=== PATIENT | male | born 1985 | race Caucasian/White ===

== ENCOUNTER → 2018-07-22 | Outpatient (CLI) | payer MEDICAID | LOC: LAB 15:06 | PROVIDERS: ATTEND Student in an Organized Health Care Education/Training Program | DX: Z34.91 Encounter for supervision of normal pregnancy, unspecified, first trimester (principal) | CPT/HCPCS: 36415; 84702 ==

== ENCOUNTER → 2018-07-24 | Outpatient (CLI) | payer MEDICAID | LOC: LAB 12:16 → EDSEX 12:16 | PROVIDERS: ATTEND Student in an Organized Health Care Education/Training Program | DX: O20.0 Threatened abortion (principal) | CPT/HCPCS: 36415; 84702 ==

== ENCOUNTER → 2018-07-29 | Outpatient (CLI) | payer MEDICAID | LOC: LAB 11:56 | PROVIDERS: ATTEND Student in an Organized Health Care Education/Training Program | DX: O20.0 Threatened abortion (principal) | CPT/HCPCS: 36415; 84702; 86900; 86901 ==

== ENCOUNTER → 2018-08-12 | Outpatient (CLI) | payer MEDICAID | LOC: LAB 11:26 | PROVIDERS: ATTEND Student in an Organized Health Care Education/Training Program | DX: O03.9 Complete or unspecified spontaneous abortion without complication (principal) | CPT/HCPCS: 36415; 84702 ==

== ENCOUNTER → 2018-09-29 | Outpatient (CLI) | payer MEDICAID ==
[~2018-09-29] MED LIST: DOXY1TAB3 PO; ONDA4TAB97 PO; PREN-127 PO
[2018-09-29 10:57] LABS: PLATELET COUNT, AUTOMATED 290 K/uL (150-450)
== END ==
LOC: LAB 09:49
PROVIDERS: ATTEND Obstetrics & Gynecology
DX: Z34.91 Encounter for supervision of normal pregnancy, unspecified, first trimester (principal)
CPT/HCPCS: 36415; 81001; 85025; 86592; 86703; 86762; 86850; 86900; 86901; 87088; 87340

== ENCOUNTER → 2018-09-30 | Outpatient (CLI) | payer MEDICAID | LOC: LAB 09:01 | PROVIDERS: ATTEND Student in an Organized Health Care Education/Training Program | DX: Z34.91 Encounter for supervision of normal pregnancy, unspecified, first trimester (principal) | CPT/HCPCS: 87491; 87591 ==

== ENCOUNTER → 2018-12-25 | Outpatient (CLI) | payer MEDICAID ==
[~2018-12-25] MED LIST changes: +FLU60SYR36 IM
--- NOTE | 2018-12-25 13:20 | RADIOLOGY IMAGING REPORT ---
FACILITY: [facility] PATIENT NAME: Ute Laureano : 1985 MR: [id number] V: [id number] EXAM DATE: ORDERING PHYSICIAN: CHADWICK SUAREZ TECHNOLOGIST: Location: [facility] [place] Patient: Ute Laureano : 1985 Visit/Account:[id number] Date of Sevice: 12/25/2018 EXAMINATION: Transabdominal OB Ultrasound >14 wks with Anatomic Survey 12/25/2018 10:11 AM History: Anatomical COMPARISON: None FINDINGS: Intrauterine gestations: one presentation: Transverse, head to maternal left heart rate: 152 bpm Amniotic fluid index: 12.8 cm Largest amniotic fluid pocket 3.6 cm Placenta: Anterior without previa. The lower edge is low but is measured at nearly 3.5 cm from the i nternal os. Placental cord insertion is normal. Uterus: gravid, otherwise normal Maternal adnexa: negative Cervix: closed Gestational Parameters: BPD: 4.2 cm 18 weeks 6 days, 22nd percentile HC: 17.1 cm 19 weeks 5 days, 54th percentile AC: 14.9 cm 20 weeks 2 days, 70th percentile FL: 3.1 cm 19 weeks 5 days, 48th percentile Average ultrasound age (AUA): 19 weeks 5 days Estimated gestational age by LMP: 19 weeks 3 days Estimated weight (EFW): 316 grams +/- 46 grams EFW for LMP percentile: 70 Anatomic Survey: Intracranial structures, nose and lips, 4-chamber heart and outflow tracts, stomach, kidneys, urinary bladder, spine, 3-vessel cord and cord insertion are unremarkable. Two upper and two lower extremiti es visualized. IMPRESSION: 1. Single live intrauterine gestation; estimated ultrasound age 19 weeks 5 days ([facility]ATHY 05/16/2019) which correlates well with expected dates. BPD is behind other dates but well within range of error. 2. Unremarkable anatomic survey. Report Dictated By: Charles Ann MD at 12/25/2018 1:01 PM Report E-Signed By: Charles Ann MD at 12/25/2018 1:17 PM WSN:[email or web address]
== END ==
LOC: US 10:05
PROVIDERS: ATTEND Student in an Organized Health Care Education/Training Program
DX: Z02.9 Encounter for administrative examinations, unspecified (principal)

== ENCOUNTER → 2019-02-23 | Outpatient (CLI) | payer MEDICAID ==
[~2019-02-23] MED LIST changes: +DIPH0.5S2 IM
[2019-02-23 10:53] LABS: PLATELET COUNT, AUTOMATED 266 K/uL (150-450)
== END ==
LOC: LAB 08:08
PROVIDERS: ATTEND Student in an Organized Health Care Education/Training Program
DX: Z34.92 Encounter for supervision of normal pregnancy, unspecified, second trimester (principal)
CPT/HCPCS: 36415; 82950; 85025